=== PATIENT | female | born 1990 | race Two or more races ===

== ENCOUNTER 2019-08-15 09:05 | Emergency (ER) | payer SELFPAY ==
[2019-08-15] MEDS ORDERED: NORMAL SALINE 1000 ML 1,000 ML IV ONE (10:01)
[2019-08-15] MEDS ORDERED: METOCLOPRAMIDE HCL INJ/PF 10 MG/2 ML SDV IV ONE (10:01)
--- NOTE | 2019-08-15 10:04 | ER Document Report ---
ED Medical Screen (RME) - General Chief Complaint: Headache Stated Complaint: VOMITING/MIGRAINE Time Seen by Provider: 08/15/19 09:58 Notes: Patient is 68-year-old female with a history of migraines who presents emergency department with a migraine headache that started yesterday. States the migraine is on the right side of her head. Exam: Awake, alert, oriented. Upper and lower extremity strength 5 out of 5. I have greeted and performed a rapid initial assessment of this patient. A comprehensive ED assessment and evaluation of the patient, analysis of test results and completion of medical decision making process will be conducted by an additional ED providers. - Related Data Allergies/Adverse Reactions: No Known Allergies Allergy (Verified 08/15/19 09:54) Physical Exam - Vital signs Vitals: Temp Pulse Resp BP Pulse Ox 98.8 F 87 16 123/78 97 08/15/19 09:10 08/15/19 09:10 08/15/19 09:10 08/15/19 09:10 08/15/19 09:10 Course - Vital Signs Vital signs: Temp Pulse Resp BP Pulse Ox 98.8 F 87 16 123/78 97 08/15/19 09:10 08/15/19 09:10 08/15/19 09:10 08/15/19 09:10 08/15/19 09:10
[2019-08-15 10:39] LABS: ABSOLUTE LYMPHOCYTES (AUTO) 1.7 10^3/uL (0.5-4.7); ABSOLUTE MONOCYTES (AUTO) 0.4 10^3/uL (0.1-1.4); ABSOLUTE NEUT (AUTO) 6.8 10^3/uL (1.7-8.2); BASOPHILS % (AUTO) 0.4 % (0-2); EOSINOPHILS % (AUTO) 0.3 % (0-6); HEMOGLOBIN 14.9 g/dL (12.0-15.5); LYMPHOCYTES % (AUTO) 19.4 % (13-45); MEAN CORPUSCULAR HEMOGLOBIN 30.2 pg (27.0-33.4); MEAN CORPUSCULAR VOLUME 89 fl (80-97); MONOCYTES % (AUTO) 4.7 % (3-13); PLATELET COUNT 272 10^3/uL (150-450); RED BLOOD COUNT 4.94 10^6/uL (3.72-5.28); RED CELL DISTRIBUTION WIDTH 13.8 % (11.5-14.0); SEGMENTED NEUTROPHILS % (AUTO) 75.2 % (42-78); TOTAL CELLS COUNTED % (AUTO) 100 %
[2019-08-15 10:43] LABS: APPEARANCE,URINE SLIGHTLY-CLOUDY; BILIRUBIN,URINE NEGATIVE (NEGATIVE); COLOR,URINE YELLOW; GLUCOSE, URINE NEGATIVE (NEGATIVE); KETONES,URINE NEGATIVE (NEGATIVE); LEUKOCYTE ESTERASE,URINE NEGATIVE (NEGATIVE); NITRITE,URINE NEGATIVE (NEGATIVE); PROTEIN,URINE 100 mg/dL (NEGATIVE); URINE SPECIFIC GRAVITY 1.026; UROBILINOGEN,URINE NEGATIVE mg/dL (<2.0)
[2019-08-15 11:00] LABS: ALBUMIN 4.7 g/dL (3.5-5.0); ALKALINE PHOSPHATASE 102 U/L (38-126); ANION GAP 11 (5-19); ASPARTATE AMINO TRANSFERASE 23 U/L (14-36); BILIRUBIN,DIRECT 0.2 mg/dL (0.0-0.4); BILIRUBIN,TOTAL 0.5 mg/dL (0.2-1.3); BLOOD UREA NITROGEN 8 mg/dL (7-20); CALCIUM 10.1 mg/dL (8.4-10.2); CARBON DIOXIDE 29 mmol/L (22-30); CHLORIDE 102 mmol/L (98-107); GLUCOSE 96 mg/dL (75-110); POTASSIUM 4.2 mmol/L (3.6-5.0); TOTAL PROTEIN 8.3 g/dL (6.3-8.2)
[2019-08-15] MEDS ORDERED: DIPHENHYDRAMINE HCL 50 MG/ML VIAL IV ONE (13:29)
[2019-08-15] MEDS ORDERED: KETOROLAC TROMETHAMINE INJ/PF 30 MG/1 ML SDV IV ONE (13:30)
--- NOTE | 2019-08-15 13:34 | ER Document Report ---
ED General - General Chief Complaint: Headache Stated Complaint: VOMITING/MIGRAINE Time Seen by Provider: 08/15/19 09:58 - HPI Notes: Ms. Dorantes is a 28-year-old female with a chief complaint of recurrent migraine headache. Patient currently has no primary care doctor. She has had chronic recurrent migraine headaches since she was a teenager. She is not currently on any type of prophylaxis. She says she typically gets headaches 3-4 times per month. Today's headache is her typical headache which is associated with nausea vomiting and mild photophobia as well as right hemicranial pain. She saw some spots and flashes prior to the headache and says this is also her usual pattern. She denies any deficit in speech, swallowing or eyesight. She denies any focal sensory or motor deficit. Normal last menstrual period 2 weeks ago. No known allergies. No chronic medications. - Related Data Allergies/Adverse Reactions: No Known Allergies Allergy (Verified 08/15/19 09:54) Past Medical History - General Information source: Patient, Relative - Social History Smoking Status: Former Smoker Family History: Reviewed & Not Pertinent Patient has suicidal ideation: No Patient has homicidal ideation: No Review of Systems - Review of Systems Notes: Constitutional: Negative for fever. HENT: Negative for sore throat. Eyes: As per HPI. Cardiovascular: Negative for chest pain. Respiratory: Negative for shortness of breath. Gastrointestinal: As per HPI. Genitourinary: Negative for dysuria. Musculoskeletal: Negative for back pain. Skin: Negative for rash. Neurological: As per HPI. 10 point ROS negative except as marked above and in HPI. Physical Exam - Vital signs Vitals: Temp Pulse Resp BP Pulse Ox 98.8 F 87 16 123/78 97 08/15/19 09:10 08/15/19 09:10 08/15/19 09:10 08/15/19 09:10 08/15/19 09:10 - Notes Notes: GENERAL: Well-developed well-nourished female approximately stated age who appears moderately uncomfortable and photophobic. SKIN: Good turgor no rashes. HEAD: Normocephalic atraumatic. EYES: PERRLA. EOMI. Conjunctivae and sclerae clear. EARS: CANALS AND TMS CLEAR. NOSE: CLEAR. MOUTH: Moist mucosa. Good dentition. No stridor or edema. No drooling. NECK: Supple. No masses or thyromegaly. No adenopathy. Carotids 2+ without bruits. No JVD. BACK: Symmetrical without tenderness. CHEST: Respirations unlabored. Breath sounds clear and symmetrical. HEART: Regular rhythm. No murmur gallop or rub. ABDOMEN: Soft nontender without masses, organomegaly or rebound. Bowel sounds normally active. No bruits. GENITALIA: Deferred. EXTREMITIES: No edema. No calf tenderness. Cap refill less than 1.5 seconds. Dorsalis pedis and posterior tibial pulses 3+ and symmetrical. NEUROLOGICAL: GCS 15. Alert and oriented x3. Normal gait. Fluent speech. Cranial nerves II through XII intact. Sensorimotor and cerebellar normal. Normal tone. PSYCHIATRIC: Appropriate affect. Course - Re-evaluation Re-evalutation: 08/15/19 15:20 Patient received 2 L of normal saline IV as well as IV medications including Toradol, Benadryl and Reglan. She is now pain-free and requests discharge which I feel be appropriate. I am also going to start her on prophylaxis with low- dose beta-jackelyn due to the frequency of her headaches. - Vital Signs Vital signs: Temp Pulse Resp BP Pulse Ox 98.1 F 82 16 103/57 L 98 08/15/19 12:56 08/15/19 12:56 08/15/19 09:10 08/15/19 12:56 08/15/19 12:56 - Laboratory Result Diagrams: 08/15/19 10:25 08/15/19 10:25 Laboratory results interpreted by me: 08/15/19 08/15/19 10:25 10:25 Total Protein 8.3 H Urine Protein 100 H Discharge - Discharge Clinical Impression: Migraine headache with aura Qualifiers: Status migrainosus presence: without status migrainosus Intractability: not intractable Qualified Code(s): G43.109 - Migraine with aura, not intractable, without status migrainosus Condition: Stable Disposition: HOME, SELF-CARE Additional Instructions: Migraine Headache The physician feels that your symptoms are due to a migraine attack. Migraines are caused by changes in the blood vessels of the head. Arteries go into spasm, often causing warning symptoms that a headache may begin soon. As the spasm goes away, the vessels dilate and throb, causing the pounding pain of a migraine headache. Migraines often cause nausea and vomiting. The treatment of headaches varies with severity and cause of pain. Not all headaches need pain shots -- in fact, there is evidence that using narcotics for headaches may make them worse in the long run. The physician will determine the therapy that's in your best interest for this particular headache. Medications are available that may prevent migraines, or stop them as they first occur. If one medication is not helpful, try another. If migraines are frequent, be patient -- follow the doctor's recommendations. Call the physician if you are worsening, or if new symptoms arise. Return here as needed for new or worsening symptoms: Pain that is worsening or unimproved Uncontrolled vomiting High fever or shaking chills Overall worsening Prescriptions: Butalb/Acetaminophen/Caffeine [Fioricet 50-300-40 mg Capsule] 1 cap PO Q4 PRN #12 cap PRN Reason: Metoprolol Succinate [Toprol Xl 25 mg Tab.sr] 25 mg PO DAILY #30 tab.sr.24h Referrals: [facility] [Provider Group] - Follow up as needed
[2019-08-15 15:57] VITALS: BP 106/51
== END 2019-08-15 15:42 | disposition home or self-care (01) ==
LOC: ER 09:05
DX: G43.109 Migraine with aura, not intractable, without status migrainosus (principal); R11.10 Vomiting, unspecified
CPT/HCPCS: 99283; 96361; 96374; 96375; 36415; 84703; 85025; 80053; 81001; J1200; J1885; J2765; J7030